=== PATIENT | male | born 1960 | race Two or more races ===

== ENCOUNTER 2020-01-31 09:12 | Inpatient (IN) | payer BC ==
[~2020-01-31] VITALS: Ht 170.2 cm; Wt 77.2 kg
--- NOTE | 2020-01-31 09:21 | NUR ---
EVALUATED BY Romulo TODD IN TRIAGE, EKG DONE, ASA ADMINISTERED.
[2020-01-31] MEDS ORDERED: ASPIRIN 81 MG TABLET CHEW ONE (09:23)
[2020-01-31] MEDS ORDERED: ASPIRIN 81 MG TABLET CHEW PO ONE (09:30)
[2020-01-31 09:55] LABS: BASOPHILS % (AUTO) 1 % (0-1); EOSINOPHILS % (AUTO) 2 % (1-7); LYMPHOCYTES % (AUTO) 24 % (22-44); MEAN CORPUSCULAR HEMOGLOBIN 29.9 pg (27.5-34.5); MEAN CORPUSCULAR HGB CONC 34.2 g/dL (33.2-36.2); MEAN PLATELET VOLUME 8.4 fL (7.4-10.4); MONOCYTES % (AUTO) 10 % (2-9); NEUTROPHILS % (AUTO) 63 % (42-75); PLATELET COUNT 305 x10^3/uL (130-400); RED BLOOD COUNT 4.46 x10^6/uL (4.38-5.82); RED CELL DISTRIBUTION WIDTH 12.6 % (9.4-14.8)
[2020-01-31 09:56] LABS: MD NO
[2020-01-31 10:04] LABS: ALANINE AMINOTRANSFERASE 26 U/L (12-78); ANION GAP 4 mmol/L (5-15); CALCIUM 9.2 mg/dL (8.5-10.1); CHLORIDE 104 mmol/L (98-107); CREATININE 1.23 mg/dL (0.7-1.3)
[2020-01-31 10:08] LABS: ALKALINE PHOSPHATASE 70 U/L (45-117); BILIRUBIN,TOTAL 0.7 mg/dL (0.2-1.0); TOTAL PROTEIN 7.9 g/dL (6.4-8.2); TROPONIN I < 0.015 ng/mL (0.000-0.045)
[2020-01-31] MEDS ORDERED: PLEASE ENTER ALLERGIES MC SCH (10:30)
--- NOTE | 2020-01-31 11:30 | NUR ---
PT AMBULATED TO BR INDEPENDENTLY WITH A STEADY GAIT AND BTB.
[2020-01-31] MEDS ORDERED: HEPARIN 5,000 UNITS/ML, 1ML ONE (12:45)
[2020-01-31] MEDS ORDERED: HEPARIN 5,000 UNITS/ML, 1ML IV ONE (13:00)
[2020-01-31] MEDS ORDERED: HEPARIN 5,000 UNITS/ML, 1ML IV PRN (13:00)
[2020-01-31] MEDS: HEPARIN 25,000 UNITS/250ML PMX 250 ML IV PRN (13:04)
[2020-01-31] MEDS ORDERED: NITROGLYCERIN 0.4 MG BOTTLE (25 TABS) SL PRN (14:00)
[2020-01-31] MEDS ORDERED: morphine SULFATE 10 MG/ML, 1ML IVPush PRN (14:00)
[2020-01-31] MEDS ORDERED: ONDANSETRON 2MG/ML, 2ML IVPush PRN (14:00)
[2020-01-31] MEDS ORDERED: LABETALOL 5MG/ML, 20ML IVPush PRN (14:00)
[2020-01-31] MEDS ORDERED: ACETAMINOPHEN 325 MG TABLET PO PRN (14:00)
[2020-01-31] MEDS ORDERED: ASPI81TA45 PO (14:41)
[2020-01-31 14:53] LABS: TROPONIN I < 0.015 ng/mL (0.000-0.045)
[2020-01-31 15:45] VITALS: BP 126/82
[2020-01-31 17:26] VITALS: BP 131/82
[2020-01-31] MEDS: CARVEDILOL 3.125 MG TABLET PO SCH (17:27)
[2020-01-31] MEDS ORDERED: METF10007 PO (17:56)
[2020-01-31] MEDS ORDERED: ATOR40TA78 PO (17:56)
[2020-01-31] MEDS ORDERED: AMLO-210 PO (17:56)
[2020-01-31] MEDS ORDERED: LOSA50TA14 PO (17:56)
[2020-01-31 19:52] LABS: TROPONIN I < 0.015 ng/mL (0.000-0.045)
[2020-01-31 20:42] VITALS: BP 129/81
[2020-01-31] MEDS: ATORVASTATIN 40 MG TABLET PO SCH (20:47)
[2020-02-01 01:18] LABS: BASOPHILS % (AUTO) 0 % (0-1); EOSINOPHILS % (AUTO) 4 % (1-7); LYMPHOCYTES % (AUTO) 39 % (22-44); MEAN CORPUSCULAR HEMOGLOBIN 30.2 pg (27.5-34.5); MEAN CORPUSCULAR HGB CONC 34.6 g/dL (33.2-36.2); MEAN PLATELET VOLUME 8.2 fL (7.4-10.4); MONOCYTES % (AUTO) 12 % (2-9); NEUTROPHILS % (AUTO) 46 % (42-75); PLATELET COUNT 271 x10^3/uL (130-400); RED BLOOD COUNT 4.37 x10^6/uL (4.38-5.82); RED CELL DISTRIBUTION WIDTH 12.9 % (9.4-14.8)
[2020-02-01 01:26] LABS: ANION GAP 3 mmol/L (5-15); CHLORIDE 109 mmol/L (98-107); CREATININE 1.07 mg/dL (0.7-1.3)
[2020-02-01 01:32] LABS: MD SCAN
[2020-02-01 02:56] VITALS: BP 118/74
[2020-02-01] MEDS: ASPIRIN 81 MG TABLET EC PO SCH (05:38)
[2020-02-01] MEDS: CARVEDILOL 3.125 MG TABLET PO SCH ×2 (05:38→17:54)
[2020-02-01 07:39] VITALS: BP 119/77
[2020-02-01] MEDS ORDERED: SODIUM CHLORIDE 0.9% 1,000 ML IV SCH (08:30)
[2020-02-01] MEDS ORDERED: MIDAZOLAM 1 MG/ML, 5ML ONE (09:41)
[2020-02-01] MEDS ORDERED: FENTANYL PF 100 MCG/2ML ONE (09:41)
[2020-02-01] MEDS ORDERED: LIDOCAINE-MPF 1%, 5ML ONE (09:42)
[2020-02-01] MEDS ORDERED: BIVALIRUDIN 250 MG ONE (09:42)
[2020-02-01] MEDS ORDERED: HEPARIN 1,000 UNITS/ML, 10ML ONE (09:42)
[2020-02-01] MEDS ORDERED: VERAPAMIL 2.5 MG/ML, 2ML ONE (09:42)
[2020-02-01] MEDS: SODIUM CHLORIDE 0.9% 1,000 ML IV SCH ×2 (12:00→19:30)
[2020-02-01 13:39] VITALS: BP 110/73
[2020-02-01 17:53] VITALS: BP 126/84
[2020-02-01] MEDS: HEPARIN 25,000 UNITS/250ML PMX 250 ML IV PRN (18:35)
[2020-02-01 19:53] VITALS: BP 122/74
[2020-02-01] MEDS: ATORVASTATIN 40 MG TABLET PO SCH (20:25)
[2020-02-02 02:31] VITALS: BP 120/76
[2020-02-02] MEDS: SODIUM CHLORIDE 0.9% 1,000 ML IV SCH (04:00)
[2020-02-02] MEDS: ASPIRIN 81 MG TABLET EC PO SCH (05:53)
[2020-02-02] MEDS: CARVEDILOL 3.125 MG TABLET PO SCH ×2 (05:53→17:37)
[2020-02-02 07:56] VITALS: BP 122/79
[2020-02-02 12:17] VITALS: BP 125/72
[2020-02-02 20:00] VITALS: BP 125/84
[2020-02-02] MEDS ORDERED: NITROGLYCERIN 0.4 MG BOTTLE (25 TABS) SL PRN (20:30)
[2020-02-02] MEDS: ATORVASTATIN 40 MG TABLET PO SCH (21:15)
[2020-02-03] MEDS: HEPARIN 25,000 UNITS/250ML PMX 250 ML IV PRN (01:46)
[2020-02-03 03:31] VITALS: BP 109/71
[2020-02-03] MEDS: ASPIRIN 81 MG TABLET EC PO SCH (06:21)
[2020-02-03] MEDS: CARVEDILOL 3.125 MG TABLET PO SCH ×2 (06:21→17:55)
[2020-02-03 07:57] VITALS: BP 109/71
[2020-02-03 12:50] VITALS: BP 124/80
[2020-02-03 18:44] VITALS: BP 133/73
[2020-02-03] MEDS: ATORVASTATIN 40 MG TABLET PO SCH (21:05)
[2020-02-04 01:58] VITALS: BP 124/71
[2020-02-04] MEDS: HEPARIN 25,000 UNITS/250ML PMX 250 ML IV PRN (04:32)
[2020-02-04 05:40] VITALS: BP 113/75
[2020-02-04] MEDS: ASPIRIN 81 MG TABLET EC PO SCH (05:43)
[2020-02-04] MEDS: CARVEDILOL 3.125 MG TABLET PO SCH ×2 (05:43→16:24)
[2020-02-04] MEDS: INSULIN LISPRO 100 UNITS/ML, PEN SQ-INSULIN SCH ×4 (07:00→20:12)
[2020-02-04 08:12] VITALS: BP 113/71
[2020-02-04] MEDS ORDERED: METOPROLOL TARTRATE 25 MG TAB PO ONE (10:00)
[2020-02-04] MEDS ORDERED: INSULIN LISPRO 100 UNITS/ML, PEN SQ-INSULIN SCH (10:00)
[2020-02-04] MEDS ORDERED: CHLORHEXIDINE 15 ML UDC MM PRN (10:00)
[2020-02-04] MEDS ORDERED: ACETAMINOPHEN 325 MG TABLET PO PRN (10:00)
[2020-02-04 10:09] LABS: MEAN CORPUSCULAR HEMOGLOBIN 30.5 pg (27.5-34.5); MEAN CORPUSCULAR HGB CONC 34.2 g/dL (33.2-36.2); MEAN PLATELET VOLUME 9.2 fL (7.4-10.4); PLATELET COUNT 280 x10^3/uL (130-400); RED BLOOD COUNT 4.63 x10^6/uL (4.38-5.82); RED CELL DISTRIBUTION WIDTH 12.9 % (9.4-14.8)
[2020-02-04 10:20] LABS: ALANINE AMINOTRANSFERASE 35 U/L (12-78); ALBUMIN 3.9 g/dL (3.4-5.0); ANION GAP 5 mmol/L (5-15); CALCIUM 9.7 mg/dL (8.5-10.1); CHLORIDE 106 mmol/L (98-107); CREATININE 1.28 mg/dL (0.7-1.3)
[2020-02-04 10:23] LABS: ALKALINE PHOSPHATASE 72 U/L (45-117); TOTAL PROTEIN 7.9 g/dL (6.4-8.2)
[2020-02-04 10:28] LABS: INTERNATIONAL NORMALIZED RATIO 1.02 (0.93-1.1); PROTHROMBIN TIME 10.8 Seconds (9.6-11.5)
[2020-02-04 11:02] LABS: MD YES
[2020-02-04 11:04] LABS: <PLATELET ESTIMATE> ADEQUATE; <PLT MORPHOLOGY> NORMAL PLT MORPH; <RBC MORPHOLOGY> NORMAL; BAND#(MANUAL) 0.07 x10^3/uL; BANDS%(MANUAL) 1 % (0-7); BASOS#(MANUAL) 0.13 x10^3/uL (0-0.1); BASOS% (MANUAL) 2 % (0-1); EOS#(MANUAL) 0.13 x10^3/uL (0.0-0.4); EOS% (MANUAL) 2 % (1-7); LYMPH#(MANUAL) 1.68 x10^3/uL (1-3.4); LYMPHS% (MANUAL) 25 % (22-44); MONOS#(MANUAL) 0.34 x10^3/uL (0.3-2.7); MONOS% (MANUAL) 5 % (2-9); SEG#(MANUAL) 4.36 x10^3/uL (1.8-6.8); SEGS% (MANUAL) 65 % (42-75)
[2020-02-04 12:10] VITALS: BP 119/76
[2020-02-04 14:03] LABS: MICROSCOPIC NOT IND
[2020-02-04 18:53] VITALS: BP 138/80
[2020-02-04] MEDS: ATORVASTATIN 40 MG TABLET PO SCH (20:11)
[2020-02-04] MEDS: MUPIROCIN OINT 2%, 22GM TP SCH (20:12)
[2020-02-04] MEDS ORDERED: SODIUM CHLORIDE FLUSH 10ML SYR IVF SCH (21:00)
[2020-02-05 01:20] VITALS: BP 130/80
[2020-02-05] MEDS: MUPIROCIN OINT 2%, 22GM TP SCH (05:31)
[2020-02-05] MEDS: ASPIRIN 81 MG TABLET EC PO SCH (05:36)
[2020-02-05] MEDS: CARVEDILOL 3.125 MG TABLET PO SCH (05:36)
[2020-02-05] MEDS: INSULIN LISPRO 100 UNITS/ML, PEN SQ-INSULIN SCH (05:36)
[2020-02-05] MEDS ORDERED: HEPARIN 1,000 UNITS/ML, 10ML ONE (06:18)
[2020-02-05] MEDS ORDERED: PAPAVERINE 30 MG/ML, 2ML ONE (06:18)
[2020-02-05] MEDS ORDERED: MIDAZOLAM 10MG/2 ML ONE (07:06)
[2020-02-05] MEDS ORDERED: FENTANYL PF 250 MCG/5ML ONE ×4 (07:07)
[2020-02-05] MEDS ORDERED: DEXMEDETOMIDINE 200 MCG in SODIUM CHLORIDE 0.9% 48 ML IV PRN ×2 (07:30→14:00)
[2020-02-05] MEDS ORDERED: VANCOMYCIN 1,200 MG in SODIUM CHLORIDE 0.9% 250 ML IVPB PRN (07:30)
[2020-02-05] MEDS ORDERED: PHENYLEPHRINE 50 MG in SODIUM CHLORIDE 0.9% 245 ML IV PRN ×2 (07:30→14:00)
[2020-02-05] MEDS ORDERED: ALBUMIN HUMAN 5% 500 ML IV PRN (07:30)
[2020-02-05] MEDS ORDERED: CEFUROXIME 1.5 GM in SODIUM CHLORIDE 0.9% 50 ML IVPB PRN (07:30)
[2020-02-05] MEDS ORDERED: EPINEPHRINE 5 MG in SODIUM CHLORIDE 0.9% 245 ML IV PRN (07:30)
[2020-02-05] MEDS ORDERED: POTASSIUM CHLORIDE 80 MEQ, SODIUM BICARBONATE 8.4% 10 MEQ, MAGNESIUM SULFATE 0.5 GM, LI... IV PRN (07:30)
[2020-02-05] MEDS ORDERED: MANNITOL PMX 20% 500 ML IVPB PRN (07:30)
[2020-02-05] MEDS ORDERED: REGULAR INSULIN 100 UNITS in SODIUM CHLORIDE 0.9% 99 ML IV PRN ×2 (07:30→14:30)
[2020-02-05] MEDS ORDERED: PROPOFOL 10 MG/ML, 20ML ONE (08:33)
[2020-02-05] MEDS ORDERED: AMINOCAPROIC ACID 250 MG/ML, 20ML ONE ×2 (08:33)
[2020-02-05] MEDS ORDERED: ROCURONIUM 10MG/ML,5ML ONE ×2 (08:33)
[2020-02-05] MEDS ORDERED: MAGNESIUM SULFATE PMX 2GM/50ML 50 ML ONE (09:19)
[2020-02-05] MEDS ORDERED: SODIUM BICARBONATE 1 MEQ/ML, 50ML VIAL ONE (12:59)
[2020-02-05] MEDS ORDERED: HEPARIN 1,000 UNITS/ML, 30ML ONE (12:59)
[2020-02-05] MEDS ORDERED: ALBUMIN HUMAN 25% 50 ML ONE (13:00)
[2020-02-05] MEDS ORDERED: LIDOCAINE-MPF 2% ,5ML ONE (13:00)
[2020-02-05] MEDS ORDERED: VASOPRESSIN 20 UNIT in SODIUM CHLORIDE 0.9% 99 ML IV PRN (14:00)
[2020-02-05] MEDS ORDERED: morphine SULFATE 10 MG/ML, 1ML IV PRN (14:00)
[2020-02-05] MEDS ORDERED: KSCALE TO 4.5 IV SCH (14:00)
[2020-02-05] MEDS ORDERED: EPINEPHRINE 2 MG in SODIUM CHLORIDE 0.9% 248 ML IVPB PRN (14:00)
[2020-02-05] MEDS ORDERED: DEXTROSE 50%, 50ML SYRINGE IVPush PRN (14:00)
[2020-02-05] MEDS ORDERED: PROCHLORPERAZINE 5 MG/ML, 2ML IV PRN (14:00)
[2020-02-05] MEDS ORDERED: BISACODYL 10 MG SUPP PR PRN (14:00)
[2020-02-05] MEDS ORDERED: BISACODYL 5 MG EC TABLET PO PRN (14:00)
[2020-02-05] MEDS ORDERED: ONDANSETRON 2MG/ML, 2ML IVPush PRN (14:00)
[2020-02-05] MEDS ORDERED: ACETAMINOPHEN 650 MG SUPP PR PRN (14:00)
[2020-02-05] MEDS ORDERED: PHARMACY INSTRUCTION (CSU AMIODARONE) MC SCH (14:00)
[2020-02-05] MEDS ORDERED: CHLORHEXIDINE 15 ML UDC MM SCH (14:00)
[2020-02-05] MEDS ORDERED: DOBUTAMINE 250 MG in SODIUM CHLORIDE 0.9% 230 ML IV PRN (14:00)
[2020-02-05] MEDS ORDERED: MIDAZOLAM 1 MG/ML, 2ML IV PRN (14:00)
[2020-02-05] MEDS ORDERED: NITROGLYCERIN/D5W PMX 250 ML IV PRN (14:00)
[2020-02-05] MEDS ORDERED: SODIUM BICARB 8.4%, 50ML SYRINGE IVPush PRN (14:00)
[2020-02-05] MEDS ORDERED: SODIUM CHLORIDE 0.9% 1,000 ML IV SCH (14:00)
[2020-02-05] MEDS: KSCALE TO 4.5 IV SCH ×2 (14:09→20:09)
[2020-02-05 14:26] LABS: GLUCOSE BY BLOOD GAS ANALYZER 136 mg/dL (70-110); HEMOGLOBIN BY BLOOD GAS ANALYZ 14.7 g/dL (14.0-18.0); POTASSIUM BY BLOOD GAS ANALYZR 4.1 mmol/L (3.6-5.5)
[2020-02-05] MEDS ORDERED: GLUCAGON 1 MG IVPush PRN (14:30)
[2020-02-05] MEDS ORDERED: FENTANYL PF 100 MCG/2ML IVPush PRN (14:30)
[2020-02-05] MEDS ORDERED: DEXTROSE 4 GM TAB.CHEW PO PRN (14:30)
[2020-02-05 14:35] LABS: INTERNATIONAL NORMALIZED RATIO 1.13 (0.93-1.1)
[2020-02-05] MEDS ORDERED: MAGNESIUM SULFATE/D5W 100 ML ONE (14:45)
[2020-02-05] MEDS: MAGNESIUM SULFATE 1 GM in SODIUM CHLORIDE 0.9% 50 ML IV SCH (14:46)
[2020-02-05] MEDS: INSULIN LISPRO 100 UNITS/ML, PEN SQ-INSULIN PRN ×2 (16:48→20:48)
[2020-02-05] MEDS: HYDROcodone/APAP 10/325 MG TABLET PO PRN (17:51)
[2020-02-05] MEDS: CEFUROXIME 1.5 GM in SODIUM CHLORIDE 0.9% 50 ML IVPB SCH (20:10)
[2020-02-05] MEDS: VANCOMYCIN 1,200 MG in SODIUM CHLORIDE 0.9% 250 ML IV SCH (20:49)
[2020-02-05] MEDS: CHLORHEXIDINE 15 ML UDC MM SCH (21:37)
[2020-02-05] MEDS: SODIUM CHLORIDE FLUSH 10ML SYR IVF SCH (21:37)
[2020-02-05] MEDS: MUPIROCIN OINT 2%, 22GM NAS SCH (21:37)
[2020-02-05] MEDS: OXYcodone IR 5MG TABLET PO PRN ×2 (21:38→22:10)
[2020-02-05] MEDS: DOCUSATE 100 MG CAPSULE PO SCH (21:38)
[2020-02-06] MEDS: KSCALE TO 4.5 IV SCH ×2 (02:09→08:23)
[2020-02-06] MEDS: HYDROcodone/APAP 10/325 MG TABLET PO PRN ×2 (02:24→08:36)
[2020-02-06 05:00] VITALS: BP 102/68
[2020-02-06 05:17] LABS: INTERNATIONAL NORMALIZED RATIO 1.06 (0.93-1.1); PROTHROMBIN TIME 11.2 Seconds (9.6-11.5)
[2020-02-06 05:21] LABS: BASOPHILS % (AUTO) 1 % (0-1); EOSINOPHILS % (AUTO) 1 % (1-7); LYMPHOCYTES % (AUTO) 12 % (22-44); MEAN CORPUSCULAR HEMOGLOBIN 30.2 pg (27.5-34.5); MEAN CORPUSCULAR HGB CONC 34.2 g/dL (33.2-36.2); MEAN PLATELET VOLUME 8.5 fL (7.4-10.4); MONOCYTES % (AUTO) 13 % (2-9); NEUTROPHILS % (AUTO) 74 % (42-75); PLATELET COUNT 158 x10^3/uL (130-400); RED BLOOD COUNT 3.51 x10^6/uL (4.38-5.82); RED CELL DISTRIBUTION WIDTH 13.2 % (9.4-14.8)
[2020-02-06 05:24] LABS: ALBUMIN 2.9 g/dL (3.4-5.0); ANION GAP 6 mmol/L (5-15); CALCIUM 7.2 mg/dL (8.5-10.1); CHLORIDE 113 mmol/L (98-107); CREATININE 0.98 mg/dL (0.7-1.3)
[2020-02-06 05:25] LABS: MD NO
[2020-02-06] MEDS: OXYcodone IR 5MG TABLET PO PRN ×3 (05:50→17:48)
[2020-02-06] MEDS: INSULIN LISPRO 100 UNITS/ML, PEN SQ-INSULIN PRN ×5 (06:08→23:20)
[2020-02-06] MEDS: CEFUROXIME 1.5 GM in SODIUM CHLORIDE 0.9% 50 ML IVPB SCH (08:22)
[2020-02-06] MEDS: CHLORHEXIDINE 15 ML UDC MM SCH ×2 (08:23→22:40)
[2020-02-06] MEDS: MUPIROCIN OINT 2%, 22GM NAS SCH ×2 (08:23→22:42)
[2020-02-06] MEDS: SODIUM CHLORIDE FLUSH 10ML SYR IVF SCH ×3 (08:23→22:43)
[2020-02-06] MEDS: ASPIRIN 81 MG TABLET EC PO SCH (08:24)
[2020-02-06] MEDS: DOCUSATE 100 MG CAPSULE PO SCH ×2 (08:24→22:42)
[2020-02-06] MEDS: METOPROLOL TARTRATE 25 MG TAB PO/NG SCH ×2 (08:24→22:42)
[2020-02-06] MEDS: VANCOMYCIN 1,200 MG in SODIUM CHLORIDE 0.9% 250 ML IV SCH (09:09)
[2020-02-06] MEDS ORDERED: MAGNESIUM HYDROXIDE 8%, 30ML UDC PO PRN (11:00)
[2020-02-06] MEDS: POTASSIUM CHLORIDE 10 MEQ TABLET.ER PO SCH (11:03)
[2020-02-06] MEDS: FUROSEMIDE 20 MG/2 ML IV SCH (11:03)
[2020-02-06 14:07] VITALS: BP 145/86
[2020-02-06] MEDS: HYDROcodone/APAP 5/325 TABLET PO PRN (14:16)
[2020-02-06] MEDS: MAGNESIUM SULFATE 1 GM in SODIUM CHLORIDE 0.9% 50 ML IV SCH (15:08)
[2020-02-06 17:39] VITALS: BP 142/81
[2020-02-06] MEDS: ACETAMINOPHEN 325 MG TABLET PO PRN (17:48)
[2020-02-06] MEDS: metFORMIN 500 MG TABLET PO SCH (17:48)
[2020-02-06 19:16] VITALS: BP 127/75
[2020-02-06] MEDS: ATORVASTATIN 40 MG TABLET PO SCH (23:00)
[2020-02-07 00:06] VITALS: BP 129/77
[2020-02-07] MEDS: HYDROcodone/APAP 10/325 MG TABLET PO PRN ×2 (03:43→09:18)
[2020-02-07 08:55] LABS: BASOPHILS % (AUTO) 1 % (0-1); EOSINOPHILS % (AUTO) 0 % (1-7); LYMPHOCYTES % (AUTO) 9 % (22-44); MEAN CORPUSCULAR HEMOGLOBIN 30.3 pg (27.5-34.5); MEAN PLATELET VOLUME 8.6 fL (7.4-10.4); MONOCYTES % (AUTO) 12 % (2-9); NEUTROPHILS % (AUTO) 78 % (42-75); PLATELET COUNT 141 x10^3/uL (130-400); RED BLOOD COUNT 4.15 x10^6/uL (4.38-5.82); RED CELL DISTRIBUTION WIDTH 13.7 % (9.4-14.8)
[2020-02-07] MEDS: CHLORHEXIDINE 15 ML UDC MM SCH (09:01)
[2020-02-07] MEDS: ENOXAPARIN 40 MG/0.4 ML SQ SCH (09:01)
[2020-02-07] MEDS: POTASSIUM CHLORIDE 10 MEQ TABLET.ER PO SCH (09:01)
[2020-02-07] MEDS: ASPIRIN 81 MG TABLET EC PO SCH (09:01)
[2020-02-07] MEDS: FUROSEMIDE 20 MG/2 ML IV SCH (09:02)
[2020-02-07] MEDS: METOPROLOL TARTRATE 25 MG TAB PO/NG SCH ×2 (09:02→21:30)
[2020-02-07] MEDS: DOCUSATE 100 MG CAPSULE PO SCH ×2 (09:02→21:30)
[2020-02-07] MEDS: metFORMIN 500 MG TABLET PO SCH ×2 (09:02→16:38)
[2020-02-07 09:03] LABS: INTERNATIONAL NORMALIZED RATIO 1.04 (0.93-1.1)
[2020-02-07] MEDS: SODIUM CHLORIDE FLUSH 10ML SYR IVF SCH ×4 (09:03→21:31)
[2020-02-07] MEDS: MUPIROCIN OINT 2%, 22GM NAS SCH ×2 (09:03→21:30)
[2020-02-07 09:07] LABS: ANION GAP 6 mmol/L (5-15); CALCIUM 8.3 mg/dL (8.5-10.1); CHLORIDE 104 mmol/L (98-107); CREATININE 1.16 mg/dL (0.7-1.3)
[2020-02-07 09:11] LABS: MD SCAN
[2020-02-07 10:00] VITALS: BP 121/77
[2020-02-07] MEDS: MAGNESIUM SULFATE 1 GM in SODIUM CHLORIDE 0.9% 50 ML IV SCH (13:52)
[2020-02-07 15:00] VITALS: BP 125/86
[2020-02-07] MEDS: ACETAMINOPHEN 325 MG TABLET PO PRN (15:43)
[2020-02-07 21:27] VITALS: BP 113/74
[2020-02-07] MEDS: ATORVASTATIN 40 MG TABLET PO SCH (21:30)
[2020-02-08] MEDS: HYDROcodone/APAP 10/325 MG TABLET PO PRN ×2 (02:55→13:46)
[2020-02-08 02:58] VITALS: BP 107/70
[2020-02-08 04:56] LABS: MICROSCOPIC INDICATED
[2020-02-08 05:41] LABS: BASOPHILS % (AUTO) 1 % (0-1); EOSINOPHILS % (AUTO) 1 % (1-7); LYMPHOCYTES % (AUTO) 11 % (22-44); MEAN CORPUSCULAR HGB CONC 34.2 g/dL (33.2-36.2); MEAN PLATELET VOLUME 8.7 fL (7.4-10.4); MONOCYTES % (AUTO) 14 % (2-9); NEUTROPHILS % (AUTO) 74 % (42-75); PLATELET COUNT 145 x10^3/uL (130-400); RED BLOOD COUNT 3.56 x10^6/uL (4.38-5.82); RED CELL DISTRIBUTION WIDTH 13.3 % (9.4-14.8)
[2020-02-08 05:45] LABS: ANION GAP 6 mmol/L (5-15); CHLORIDE 103 mmol/L (98-107); CREATININE 0.96 mg/dL (0.7-1.3)
[2020-02-08 06:20] LABS: MD SCAN
[2020-02-08] MEDS: CLOPIDOGREL 75 MG TABLET PO SCH (08:55)
[2020-02-08] MEDS: POTASSIUM CHLORIDE 10 MEQ TABLET.ER PO SCH (08:56)
[2020-02-08] MEDS: metFORMIN 500 MG TABLET PO SCH ×2 (08:56→16:33)
[2020-02-08] MEDS: ASPIRIN 81 MG TABLET EC PO SCH (08:56)
[2020-02-08] MEDS: DOCUSATE 100 MG CAPSULE PO SCH ×2 (08:56→21:28)
[2020-02-08] MEDS: MUPIROCIN OINT 2%, 22GM NAS SCH ×2 (08:58→21:29)
[2020-02-08] MEDS: FUROSEMIDE 20 MG/2 ML IV SCH ×2 (09:00→09:01)
[2020-02-08] MEDS: SODIUM CHLORIDE FLUSH 10ML SYR IVF SCH ×4 (09:01→21:29)
[2020-02-08 09:02] VITALS: BP 104/77
[2020-02-08] MEDS: METOPROLOL TARTRATE 25 MG TAB PO/NG SCH ×2 (09:04→21:28)
[2020-02-08] MEDS: ENOXAPARIN 40 MG/0.4 ML SQ SCH (09:06)
[2020-02-08 09:54] VITALS: BP 125/82
[2020-02-08 16:32] VITALS: BP 107/71
[2020-02-08 21:25] VITALS: BP 117/80
[2020-02-08] MEDS: ATORVASTATIN 40 MG TABLET PO SCH (21:28)
[2020-02-08] MEDS: HYDROcodone/APAP 5/325 TABLET PO PRN (21:29)
[2020-02-09 00:07] VITALS: BP 120/80
[2020-02-09 05:38] LABS: BASOPHILS % (AUTO) 1 % (0-1); EOSINOPHILS % (AUTO) 4 % (1-7); LYMPHOCYTES % (AUTO) 16 % (22-44); MEAN CORPUSCULAR HEMOGLOBIN 30.8 pg (27.5-34.5); MEAN CORPUSCULAR HGB CONC 34.9 g/dL (33.2-36.2); MEAN PLATELET VOLUME 8.3 fL (7.4-10.4); MONOCYTES % (AUTO) 14 % (2-9); NEUTROPHILS % (AUTO) 66 % (42-75); PLATELET COUNT 187 x10^3/uL (130-400); RED BLOOD COUNT 3.29 x10^6/uL (4.38-5.82); RED CELL DISTRIBUTION WIDTH 13.5 % (9.4-14.8)
[2020-02-09 05:43] LABS: MD NO
[2020-02-09 05:50] LABS: CALCIUM 8.5 mg/dL (8.5-10.1)
[2020-02-09 05:53] LABS: CREATININE 0.97 mg/dL (0.7-1.3)
[2020-02-09 06:13] LABS: CHLORIDE 102 mmol/L (98-107)
[2020-02-09 06:28] LABS: ANION GAP 6 mmol/L (5-15)
[2020-02-09 08:07] VITALS: BP 114/71
[2020-02-09] MEDS: METOPROLOL TARTRATE 25 MG TAB PO/NG SCH ×2 (08:24→22:20)
[2020-02-09] MEDS: POTASSIUM CHLORIDE 10 MEQ TABLET.ER PO SCH (08:24)
[2020-02-09] MEDS: ASPIRIN 81 MG TABLET EC PO SCH (08:24)
[2020-02-09] MEDS: ENOXAPARIN 40 MG/0.4 ML SQ SCH (08:24)
[2020-02-09] MEDS: metFORMIN 500 MG TABLET PO SCH ×2 (08:25→15:46)
[2020-02-09] MEDS: FUROSEMIDE 20 MG/2 ML IV SCH (08:25)
[2020-02-09] MEDS: DOCUSATE 100 MG CAPSULE PO SCH ×2 (08:25→22:21)
[2020-02-09] MEDS: CLOPIDOGREL 75 MG TABLET PO SCH (08:25)
[2020-02-09] MEDS: INSULIN LISPRO 100 UNITS/ML, PEN SQ-INSULIN SCH ×4 (08:29→22:37)
[2020-02-09] MEDS: HYDROcodone/APAP 10/325 MG TABLET PO PRN (08:29)
[2020-02-09] MEDS: SODIUM CHLORIDE FLUSH 10ML SYR IVF SCH ×4 (08:32→21:00)
[2020-02-09] MEDS: MUPIROCIN OINT 2%, 22GM NAS SCH ×2 (08:33→22:17)
[2020-02-09] MEDS: ACETAMINOPHEN 325 MG TABLET PO PRN (10:19)
[2020-02-09 15:18] VITALS: BP 109/71
[2020-02-09] MEDS: HYDROcodone/APAP 5/325 TABLET PO PRN (18:40)
[2020-02-09 21:24] VITALS: BP 110/73
[2020-02-09] MEDS: ATORVASTATIN 40 MG TABLET PO SCH (22:21)
[2020-02-10 02:38] VITALS: BP 109/79
[2020-02-10 06:08] LABS: BASOPHILS % (AUTO) 1 % (0-1); EOSINOPHILS % (AUTO) 6 % (1-7); LYMPHOCYTES % (AUTO) 21 % (22-44); MEAN CORPUSCULAR HEMOGLOBIN 30.3 pg (27.5-34.5); MEAN CORPUSCULAR HGB CONC 34.4 g/dL (33.2-36.2); MEAN PLATELET VOLUME 8.4 fL (7.4-10.4); MONOCYTES % (AUTO) 13 % (2-9); NEUTROPHILS % (AUTO) 60 % (42-75); PLATELET COUNT 212 x10^3/uL (130-400); RED BLOOD COUNT 3.49 x10^6/uL (4.38-5.82); RED CELL DISTRIBUTION WIDTH 13.5 % (9.4-14.8)
[2020-02-10 06:10] LABS: MD NO
[2020-02-10 06:23] LABS: CHLORIDE 104 mmol/L (98-107)
[2020-02-10 06:26] LABS: ANION GAP 5 mmol/L (5-15); CALCIUM 8.5 mg/dL (8.5-10.1); CREATININE 0.92 mg/dL (0.7-1.3)
[2020-02-10] MEDS: HYDROcodone/APAP 5/325 TABLET PO PRN (06:27)
[2020-02-10] MEDS: INSULIN LISPRO 100 UNITS/ML, PEN SQ-INSULIN SCH ×2 (08:16→12:23)
[2020-02-10] MEDS: ASPIRIN 81 MG TABLET EC PO SCH (08:40)
[2020-02-10] MEDS: ENOXAPARIN 40 MG/0.4 ML SQ SCH (08:40)
[2020-02-10] MEDS: CLOPIDOGREL 75 MG TABLET PO SCH (08:41)
[2020-02-10] MEDS: METOPROLOL TARTRATE 25 MG TAB PO/NG SCH (08:41)
[2020-02-10] MEDS: DOCUSATE 100 MG CAPSULE PO SCH (08:41)
[2020-02-10] MEDS: metFORMIN 500 MG TABLET PO SCH (08:41)
[2020-02-10] MEDS: POTASSIUM CHLORIDE 10 MEQ TABLET.ER PO SCH (08:41)
[2020-02-10] MEDS: FUROSEMIDE 20 MG/2 ML IV SCH (08:42)
[2020-02-10] MEDS: SODIUM CHLORIDE FLUSH 10ML SYR IVF SCH ×2 (08:43→08:50)
[2020-02-10] MEDS: MUPIROCIN OINT 2%, 22GM NAS SCH (08:48)
[2020-02-10 09:48] VITALS: BP 112/76
[2020-02-10] MEDS ORDERED: HYDR-3237 PO (11:01)
[2020-02-10] MEDS ORDERED: POTA10TA5 PO (11:01)
[2020-02-10] MEDS ORDERED: METO25TA35 PO/NG (11:01)
[2020-02-10] MEDS ORDERED: FURO20TA3 PO (11:01)
[2020-02-10] MEDS ORDERED: CLOP75TA PO (11:01)
== END 2020-02-10 12:50 | disposition home health service (06) | DRG 233 ==
LOC: ED 09:45 → EDIP 11:59 → 5SO 15:41 → CCU 02-05 07:10 → 5SO 02-06 13:45 → DCLOUNGE 02-10 12:27
PROVIDERS: ADMIT Hospitalist; ATTEND Internal Medicine
PROC: 4A023N7 Measurement of Cardiac Sampling and Pressure, Left Heart, Percutaneous Approach (ICD-10-PCS; 2020-02-01)
PROC: B2111ZZ Fluoroscopy of Multiple Coronary Arteries using Low Osmolar Contrast (ICD-10-PCS; 2020-02-01)
PROC: B2151ZZ Fluoroscopy of Left Heart using Low Osmolar Contrast (ICD-10-PCS; 2020-02-01)
PROC: 02100Z9 Bypass Coronary Artery, One Artery from Left Internal Mammary, Open Approach (ICD-10-PCS; 2020-02-05)
PROC: 06BP4ZZ Excision of Right Saphenous Vein, Percutaneous Endoscopic Approach (ICD-10-PCS; 2020-02-05)
PROC: 5A1221Z Performance of Cardiac Output, Continuous (ICD-10-PCS; 2020-02-05)
PROC: B245ZZ4 Ultrasonography of Left Heart, Transesophageal (ICD-10-PCS; 2020-02-05)
PROC: 021109W Bypass Coronary Artery, Two Arteries from Aorta with Autologous Venous Tissue, Open Approach (ICD-10-PCS; principal; 2020-02-05 07:30)
DX: I21.4 Non-ST elevation (NSTEMI) myocardial infarction (principal); G93.41 Metabolic encephalopathy; J96.00 Acute respiratory failure, unspecified whether with hypoxia or hypercapnia; I50.32 Chronic diastolic (congestive) heart failure; J98.11 Atelectasis; Z99.11 Dependence on respirator [ventilator] status; I25.110 Atherosclerotic heart disease of native coronary artery with unstable angina pectoris; E11.9 Type 2 diabetes mellitus without complications; E78.00 Pure hypercholesterolemia, unspecified; Z20.828 Contact with and (suspected) exposure to other viral communicable diseases; E78.5 Hyperlipidemia, unspecified; I11.0 Hypertensive heart disease with heart failure; Z82.49 Family history of ischemic heart disease and other diseases of the circulatory system; Z86.73 Personal history of transient ischemic attack (TIA), and cerebral infarction without residual deficits; Z87.891 Personal history of nicotine dependence
CPT/HCPCS: 36415; 36600; 93458; 96374; 99291; J3490; S0017; 71045; 71046; 80048; 80053; 81001; 81003; 82040; 82330; 82800; 82803; 82810; 82947; 82962; 83036; 83735; 84100; 84132; 84295; 84484; 85014; 85018; 85025; 85049; 85347; 85520; 85610; 85730; 86850; 86900; 86923; 87040; 87081; 87635; 93005; 93306; 93312; 93321; 93325; 93880; 93970; 94002; 99156; C1769; C1894; G0378; J0171; J0583; J0697; J1644; J1650; J1815; J2250; J2405; J2704; J3010; J3370; J3475; J3480; P9045; P9047; C1751; C1760; J1940; J2370; J2440; J7050; Q9967

== ENCOUNTER 2020-02-14 13:32 | Emergency (ER) | payer BC ==
[~2020-02-14] VITALS: Ht 170.2 cm; Wt 77.3 kg
[~2020-02-14 13:32] MED LIST: AMLO-210 PO; ASPI81TA45 PO; ATOR40TA78 PO; CLOP75TA PO; FURO20TA3 PO; HYDR-3237 PO; LOSA50TA14 PO; METF10007 PO; METO25TA35 PO/NG; POTA10TA5 PO
--- NOTE | 2020-02-14 14:02 | NUR ---
CASE DISCUSSED WITH DR RAUSCH. PER DR RAUSCH, NO NEED TO CALL CODE NEURO AT THIS TIME. EKG COMPLETED IN TRIAGE.
--- NOTE | 2020-02-14 14:15 | NUR ---
Pt to Er 35, pt placed on site monitor, neuro checks complete with DR. Leo and myself. Pt passed swallow eval. Pt aware of plan of care.
[2020-02-14] MEDS ORDERED: SODIUM CHLORIDE FLUSH 10ML SYR IVF ONE (14:30)
--- NOTE | 2020-02-14 14:34 | NUR ---
IV started, labs drawn, at bedside plan of care disussed waiting CT scan of the head.
[2020-02-14 14:57] LABS: BASOPHILS % (AUTO) 1 % (0-1); EOSINOPHILS % (AUTO) 3 % (1-7); LYMPHOCYTES % (AUTO) 16 % (22-44); MEAN CORPUSCULAR HEMOGLOBIN 29.2 pg (27.5-34.5); MEAN PLATELET VOLUME 7.9 fL (7.4-10.4); MONOCYTES % (AUTO) 8 % (2-9); NEUTROPHILS % (AUTO) 72 % (42-75); PLATELET COUNT 493 x10^3/uL (130-400); RED BLOOD COUNT 3.66 x10^6/uL (4.38-5.82); RED CELL DISTRIBUTION WIDTH 13.3 % (9.4-14.8)
--- NOTE | 2020-02-14 14:57 | NUR ---
Pt standing with urinal, urine sent.
[2020-02-14 14:58] LABS: ALANINE AMINOTRANSFERASE 36 U/L (12-78); ALBUMIN 3.1 g/dL (3.4-5.0); ANION GAP 7 mmol/L (5-15); CHLORIDE 105 mmol/L (98-107); CREATININE 1.09 mg/dL (0.7-1.3)
[2020-02-14 15:00] LABS: ALKALINE PHOSPHATASE 76 U/L (45-117); BILIRUBIN,TOTAL 0.5 mg/dL (0.2-1.0); TOTAL PROTEIN 7.2 g/dL (6.4-8.2)
[2020-02-14 15:02] LABS: MD NO
[2020-02-14 15:14] LABS: MICROSCOPIC NOT IND
--- NOTE | 2020-02-14 15:30 | NUR ---
All labs back, chart up for ERP. at bedside.
[2020-02-14 16:25] VITALS: BP 114/69
--- NOTE | 2020-02-14 16:45 | NUR ---
Patient discharged home with , understaing to fill RX antibiotic today. Pt w/c out by tech.
== END 2020-02-14 17:17 | disposition home or self-care (01) ==
LOC: ED 14:42
DX: R13.10 Dysphagia, unspecified (principal); R51.9 Headache, unspecified; I25.2 Old myocardial infarction; R94.31 Abnormal electrocardiogram [ECG] [EKG]; I10 Essential (primary) hypertension; E11.9 Type 2 diabetes mellitus without complications; E78.00 Pure hypercholesterolemia, unspecified; Z86.73 Personal history of transient ischemic attack (TIA), and cerebral infarction without residual deficits
CPT/HCPCS: 36415; 70450; 71045; 80053; 81003; 85025; 93005; 99285

== ENCOUNTER → 2020-04-08 | Outpatient (CLI) | payer BC | END | disposition home or self-care (01) | LOC: CFH 11:04 | PROVIDERS: ATTEND Internal Medicine Cardiovascular Disease | DX: I08.8 Other rheumatic multiple valve diseases (principal); Z95.1 Presence of aortocoronary bypass graft | CPT/HCPCS: 93306 ==